=== PATIENT | male | born 1945 | race Caucasian/White ===

== ENCOUNTER 2020-04-06 09:46 | Day surgery (SDC) | payer MEDICARE, MEDICAID ==
[~2020-04-06] VITALS: Ht 170.2 cm; Wt 79.7 kg
[2020-04-06 10:16] VITALS: BP 139/69; PULSE 91; TEMP 98.4
[2020-04-06] MEDS ORDERED: MULTAQ400 MG PO (10:24)
[2020-04-06] MEDS ORDERED: FLOMAX 0.40.4 MG/CAP PO (10:25)
[2020-04-06] MEDS ORDERED: PROSCAR 5MG5 MG PO (10:25)
[2020-04-06] MEDS ORDERED: PRIL40 PO (10:25)
--- NOTE | 2020-04-06 10:26 | NUR ---
TO RM AT 0950- CALL LIGHT IN REACH
[2020-04-06 11:50] VITALS: BP 126/77; PULSE 85; TEMP 97.1
--- NOTE | 2020-04-06 11:50 | NUR ---
Pt returns to room via cart. Pt ambulates from cart to recliner. Monitors on and alarms set. Report received from Shruthi. Call light within reach. Pt has no complaints. Pt requests water and coffee with nothing to eat.
[2020-04-06 12:00] VITALS: BP 116/68; PULSE 80
[2020-04-06 12:15] VITALS: BP 125/67; PULSE 71
--- NOTE | 2020-04-06 12:15 | NUR ---
Pt taking drink well. No complaints voiced.
[2020-04-06 12:30] VITALS: BP 118/70; PULSE 72
--- NOTE | 2020-04-06 13:15 | NUR ---
Discharge instructions given to patient. Handed to him are a thank you card, discharge information, diagnosis information, and a discharge med sheet. All questions answered to his satisfaction.
--- NOTE | 2020-04-06 13:25 | NUR ---
Pt transferred out of hospital via wheelchair and this RN to waiting private vehicle driven by granddaughter.
== END 2020-04-06 13:25 | disposition home or self-care (01) ==
LOC: SDCO 09:46
DX: K31.819 Angiodysplasia of stomach and duodenum without bleeding (principal); K92.1 Melena; D50.9 Iron deficiency anemia, unspecified; K21.0 Gastro-esophageal reflux disease with esophagitis; I48.91 Unspecified atrial fibrillation; Z95.0 Presence of cardiac pacemaker; Z79.01 Long term (current) use of anticoagulants; Z87.891 Personal history of nicotine dependence
CPT/HCPCS: J2704; J7030